=== PATIENT | female | born 1935 | race Hispanic/Latino ===

== ENCOUNTER 2021-01-17 09:21 | Outpatient (CLI) | payer MEDICARE, OTHER ==
--- NOTE | 2021-01-17 12:39 | Mammography Report ---
DIGITAL SCREENING MAMMOGRAM WITH CAD, 01/17/2021 CLINICAL INFORMATION / INDICATION: Routine screening mammography. SCREENING MAMMO TECHNIQUE: Digital bilateral 2D mammography was obtained in the craniocaudal and mediolateral obliqu e projections. This examination was interpreted with the benefit of Computer-Aided Detection analysis . COMPARISON: 09/26/2018 FINDINGS: Breast Density: There are scattered areas of fibroglandular density. No dominant mass, suspicious calcifications, or architectural distortion in either breast. Right lump ectomy and radiation change on the right. Right breast biopsy clip. No interval change. IMPRESSION: No mammographic evidence of malignancy. Follow up recommendation: Routine yearly BI-RADS Category 2: Benign. A "normal" or negative report should not discourage follow up or biopsy of a clinically significant f inding. A written summary of these findings will be mailed to the patient. The patient will be entered into a mammography reporting system which will generate a reminder letter for the patient's next appointmen t at the appropriate interval. The [employer] recommends yearly mammograms starting at age 40 and continuing as l gisela as a woman is in good health. Breast MRI is recommended for women with an approximate 20-25% or greater lifetime risk of breast cancer, including women with a strong family history of breast or ova kaela cancer or who have been treated for Hodgkin's disease. Signer Name: Rosy Weiss MD Signed: 01/17/2021 12:35 PM Workstation Name: [id number]
== END 2021-01-17 09:22 | disposition home or self-care (01) ==
LOC: SPVWC 09:21
PROVIDERS: ATTEND Surgery
DX: Z12.31 Encounter for screening mammogram for malignant neoplasm of breast (principal)
CPT/HCPCS: 77067

== ENCOUNTER 2021-01-19 09:46 | Outpatient (CLI) | payer MEDICARE, OTHER ==
--- NOTE | 2021-01-19 12:34 | PET Report ---
PET/CT HISTORY: C50.411. Initial staging of right breast cancer TECHNIQUE: The patient's fasting blood glucose was 96. The patient weighed 116 lbs. The patient wa s injected with 11.1 mCi of FDG in the left forearm at 1036 hours and imaging was started at 1123 [address] rs. The patient was imaged from the skull base to the thighs. All CT scans at this location are perf ormed using CT dose reduction for ALARA by means of automated exposure control. Images were reviewed on a workstation. COMPARISON: No relevant comparison at this facility FINDINGS: IMAGED BRAIN: [Physiologic FDG uptake. NECK: Physiologic FDG uptake. Surgical clips and scarring in the right posterior lateral breast is no la presumably representing a surgical site. CHEST WALL: Physiologic FDG uptake. MEDIASTINUM: Physiologic FDG uptake. Calcified right hilar lymph nodes are noted consistent with old granulomatous disease. No pathologic adenopathy. LUNGS: Physiologic FDG uptake. Minor linear scarring in the anterior right lung is noted which could represent radiation changes. 1 cm calcified granuloma in the right lower lobe. No suspicious pulmona ry lesion. HEPATOBILIARY: Physiologic FDG uptake. 3.6 cm left hepatic lobe cyst is noted. PANCREAS: Physiologic FDG uptake. SPLEEN: Physiologic FDG uptake. KIDNEYS/BLADDER: Physiologic FDG uptake. ADRENAL GLANDS: Physiologic FDG uptake. GI/MESENTERY: Physiologic FDG uptake. PELVIC VISCERA: Physiologic FDG uptake. Hysterectomy is suspected. LYMPH NODES: Physiologic FDG uptake. OSSEOUS STRUCTURES: Physiologic FDG uptake. Mild osteopenia. Moderate degenerative changes are noted throughout the spine. No suspicious bony lesion. ADDITIONAL FINDINGS: None. IMPRESSION: Negative PET CT Signer Name: Eddie Campbell Jr, MD Signed: 01/19/2021 12:29 PM Workstation Name: [id number]
== END 2021-01-19 09:47 | disposition home or self-care (01) ==
LOC: PET 09:46
PROVIDERS: ATTEND Internal Medicine Hematology & Oncology
DX: C50.411 Malignant neoplasm of upper-outer quadrant of right female breast (principal); K76.89 Other specified diseases of liver
CPT/HCPCS: 78815; 82962; A9552

== ENCOUNTER 2022-01-18 11:05 | Outpatient (CLI) | payer MEDICARE, OTHER ==
--- NOTE | 2022-01-18 16:38 | Mammography Report ---
DIGITAL SCREENING MAMMOGRAM WITH CAD, 01/18/2022 CLINICAL INFORMATION / INDICATION: Routine screening mammography. SCREENING TECHNIQUE: Digital bilateral 2D mammography was obtained in the craniocaudal and mediolateral obliqu e projections. This examination was interpreted with the benefit of Computer-Aided Detection analysis . COMPARISON: 01/17/2021 and 11/26/2019 FINDINGS: Breast Density: There are scattered areas of fibroglandular density. No dominant mass, suspicious calcifications, or architectural distortion in either breast. Old postoperative change on the right. IMPRESSION: No mammographic evidence of malignancy. Follow up recommendation: Routine yearly screening mammogram. BI-RADS Category 2: BENIGN. A "normal" or negative report should not discourage follow up or biopsy of a clinically significant f inding. A written summary of these findings will be mailed to the patient. The patient will be entered into a mammography reporting system which will generate a reminder letter for the patient's next appointmen t at the appropriate interval. The [employer] recommends yearly mammograms starting at age 40 and continuing as l gisela as a woman is in good health. Breast MRI is recommended for women with an approximate 20-25% or greater lifetime risk of breast cancer, including women with a strong family history of breast or ova kaela cancer or who have been treated for Hodgkin's disease. Signer Name: Sky Red MD Signed: 01/18/2022 4:34 PM Workstation Name: [id number]
== END 2022-01-18 11:06 | disposition home or self-care (01) ==
LOC: MAMMO 11:05
PROVIDERS: ATTEND Internal Medicine Hematology & Oncology
DX: Z12.31 Encounter for screening mammogram for malignant neoplasm of breast (principal)
CPT/HCPCS: 77067